=== PATIENT | female | born 1945 | race Caucasian/White ===

== ENCOUNTER → 2017-08-01 | Outpatient (CLI) | payer OTHER | END | disposition home or self-care (01) | LOC: RAH 11:50 | PROVIDERS: ATTEND Internal Medicine | DX: Z00.00 Encounter for general adult medical examination without abnormal findings (principal); R06.02 Shortness of breath | CPT/HCPCS: 71020 ==

== ENCOUNTER → 2017-08-20 | Outpatient (CLI) | payer OTHER | END | disposition home or self-care (01) | LOC: SHCH 13:39 | PROVIDERS: ATTEND Internal Medicine Cardiovascular Disease | DX: I65.23 Occlusion and stenosis of bilateral carotid arteries (principal); I10 Essential (primary) hypertension; I25.10 Atherosclerotic heart disease of native coronary artery without angina pectoris | CPT/HCPCS: 93880 ==

== ENCOUNTER → 2017-08-25 | Outpatient (CLI) | payer OTHER | END | disposition home or self-care (01) | LOC: RAH 13:16 | PROVIDERS: ATTEND Internal Medicine | DX: Z12.31 Encounter for screening mammogram for malignant neoplasm of breast (principal) | CPT/HCPCS: 77067 ==

== ENCOUNTER → 2018-06-16 | Outpatient (CLI) | payer OTHER | END | disposition home or self-care (01) | LOC: RAH 11:03 | PROVIDERS: ATTEND Internal Medicine | DX: I12.9 Hypertensive chronic kidney disease with stage 1 through stage 4 chronic kidney disease, or unspecified chronic kidney disease (principal); N18.3 Chronic kidney disease, stage 3 (moderate); N32.89 Other specified disorders of bladder | CPT/HCPCS: 76770 ==

== ENCOUNTER → 2018-11-09 | Outpatient (CLI) | payer OTHER | END | disposition home or self-care (01) | LOC: RAH 09:40 | PROVIDERS: ATTEND Internal Medicine | DX: M25.511 Pain in right shoulder (principal); M79.601 Pain in right arm | CPT/HCPCS: 73030 ==

== ENCOUNTER → 2019-01-04 | Outpatient (CLI) | payer OTHER | END | disposition home or self-care (01) | LOC: SHCH 09:46 | PROVIDERS: ATTEND Internal Medicine Cardiovascular Disease | DX: I65.23 Occlusion and stenosis of bilateral carotid arteries (principal); I25.10 Atherosclerotic heart disease of native coronary artery without angina pectoris | CPT/HCPCS: 93880 ==

== ENCOUNTER → 2019-06-30 | Outpatient (CLI) | payer OTHER | END | disposition home or self-care (01) | LOC: RAH 13:36 | PROVIDERS: ATTEND Internal Medicine | DX: Z12.31 Encounter for screening mammogram for malignant neoplasm of breast (principal) | CPT/HCPCS: 77067 ==

== ENCOUNTER → 2019-07-15 | Outpatient (CLI) | payer OTHER | END | disposition home or self-care (01) | LOC: RAH 09:33 | PROVIDERS: ATTEND Internal Medicine | DX: N63.12 Unspecified lump in the right breast, upper inner quadrant (principal) | CPT/HCPCS: 76641 ==

== ENCOUNTER 2019-11-15 09:51 | Inpatient (IN) | payer OTHER ==
[~2019-11-15] VITALS: Ht 160 cm; Wt 95.0 kg
[2019-11-15 10:20] LABS: BASOPHILS % (AUTO) 0.4 % (0.0-5.0); EOSINOPHILS % (AUTO) 0.5 % (0.0-8.0); HEMATOCRIT 47.3 % (36-48); LYMPHOCYTES % (AUTO) 6.3 % (21.0-51.0); MEAN CORPUSCULAR HEMOGLOBIN 30.6 pg (27.0-33.0); MEAN CORPUSCULAR HGB CONC 33.4 g/dL (32.0-36.0); MEAN CORPUSCULAR VOLUME 91.7 fL (79-99); MONOCYTES % (AUTO) 4.1 % (3.0-13.0); NEUTROPHILS % (AUTO) 88.1 % (40.0-77.0); PLATELET COUNT (AUTO) 285 K/uL (130-400); RED BLOOD CELL COUNT(AUTO) 5.16 MIL/uL (4.00-5.50); RED CELL DISTRIBUTION WIDTH 12.9 % (11.0-15.5); WHITE BLOOD COUNT (AUTO) 19.3 K/uL (4.8-10.8)
[2019-11-15 10:24] LABS: APPEARANCE,URINE Clear (CLEAR); BILIRUBIN,URINE Negative (NEGATIVE); COLOR,URINE Yellow (YELLOW); GLUCOSE, URINE (UA) Negative (NEGATIVE); KETONES,URINE Negative (NEGATIVE); LEUKOCYTE ESTERASE ,URINE Small (NEGATIVE); NITRATE,URINE Negative (NEGATIVE); OCCULT BLOOD,URINE Trace (NEGATIVE); PROTEIN,URINE Negative (NEGATIVE); UROBILINOGEN,URINE 0.2 mg/dL (0.2-1.0)
[2019-11-15 10:30] LABS: BACTERIA,URINE Moderate /HPF (None Seen); CREATININE 1.2 mg/dL (0.5-1.5); POTASSIUM 3.8 mmol/L (3.5-5.1); RBC,URINE 0-1 /HPF (0-1); SQUAMOUS EPITHELIAL CELL,UR Few /HPF (0-2)
[2019-11-15 10:36] LABS: ALBUMIN 4.3 g/dL (3.5-5.0); BILIRUBIN,TOTAL 0.7 mg/dL (0.2-1.0); TOTAL PROTEIN, SERUM 8.1 g/dL (6.0-8.3)
[2019-11-15] MEDS ORDERED: LEVOFLOXACIN 500 MG/D5W 100 ML 100 ML ONE (13:15)
[2019-11-15] MEDS ORDERED: METRONIDAZOLE 500 MG TABLET ONE (13:15)
[2019-11-15] MEDS ORDERED: MORPHINE SULFATE 2 MG/ML 1ML SYG IV PRN (19:45)
[2019-11-15] MEDS ORDERED: ONDANSETRON HCL 4 MG/2 ML VIAL IV PRN (19:45)
[2019-11-15] MEDS ORDERED: ACETAMINOPHEN 325 MG TAB PO PRN ×2 (19:45)
[2019-11-15] MEDS ORDERED: MORPHINE SULFATE 2 MG/ML 1ML SYG ONE (20:26)
[2019-11-15] MEDS ORDERED: ONDANSETRON HCL 4 MG/2 ML VIAL ONE (20:26)
[2019-11-15 20:40] VITALS: BP 131/79
[2019-11-15] MEDS: METRONIDAZOLE 500 MG TABLET PO SCH (20:53)
[2019-11-15] MEDS: FAMOTIDINE/PF 20 MG/2 ML VIAL IV SCH (20:58)
[2019-11-15] MEDS: SODIUM CHLORIDE 0.9% 1000ML 1,000 ML IV SCH (20:58)
[2019-11-15] MEDS ORDERED: FAMOTIDINE/PF 20 MG/2 ML VIAL IV SCH (21:00)
[2019-11-15] MEDS ORDERED: ASPI-556 PO (21:22)
[2019-11-15] MEDS ORDERED: LISI-613 PO (21:22)
[2019-11-15] MEDS ORDERED: ATOR40TA69 PO (21:22)
[2019-11-15] MEDS ORDERED: FOLI1TAB85 PO (21:22)
[2019-11-15] MEDS ORDERED: ESCI20TA36 PO (21:22)
[2019-11-15] MEDS ORDERED: PREG75CA75 PO (21:22)
[2019-11-15] MEDS ORDERED: DEXT20TA6 PO (21:22)
[2019-11-15] MEDS ORDERED: BUSP10TA3 PO (21:22)
[2019-11-15] MEDS ORDERED: FLUT16H NASAL (21:22)
[2019-11-15 23:49] VITALS: BP 105/58
[2019-11-16 04:00] VITALS: BP 90/46
[2019-11-16 05:03] LABS: BASOPHILS % (AUTO) 0.5 % (0.0-5.0); EOSINOPHILS % (AUTO) 2.2 % (0.0-8.0); HEMATOCRIT 40.1 % (36-48); LYMPHOCYTES % (AUTO) 14.4 % (21.0-51.0); MEAN CORPUSCULAR HEMOGLOBIN 30.6 pg (27.0-33.0); MEAN CORPUSCULAR HGB CONC 33.2 g/dL (32.0-36.0); MEAN CORPUSCULAR VOLUME 92.2 fL (79-99); MONOCYTES % (AUTO) 7.6 % (3.0-13.0); NEUTROPHILS % (AUTO) 75.1 % (40.0-77.0); PLATELET COUNT (AUTO) 223 K/uL (130-400); RED BLOOD CELL COUNT(AUTO) 4.35 MIL/uL (4.00-5.50)
[2019-11-16 05:29] LABS: ALBUMIN 3.2 g/dL (3.5-5.0); BILIRUBIN,TOTAL 0.9 mg/dL (0.2-1.0); CREATININE 1.6 mg/dL (0.5-1.5); POTASSIUM 4.3 mmol/L (3.5-5.1); TOTAL PROTEIN, SERUM 6.3 g/dL (6.0-8.3)
[2019-11-16 05:47] LABS: % IRON SATURATION 23.4 % (22-44)
[2019-11-16 08:11] VITALS: BP 110/58
[2019-11-16] MEDS: SODIUM CHLORIDE 0.9% 1000ML 1,000 ML IV SCH ×2 (09:38→20:15)
[2019-11-16] MEDS: METRONIDAZOLE 500 MG TABLET PO SCH ×3 (09:46→20:15)
[2019-11-16] MEDS: FAMOTIDINE/PF 20 MG/2 ML VIAL IV SCH (09:47)
--- NOTE | 2019-11-16 11:22 | NUR ---
INITIAL SW spoke with patient's spouse, Warren Helton, [phone]. Patient lives with spouse. No home services. DME: CPAP, BPM, glucometer (no insulin), nebulizer, shower chair. Patient is independent with ADL's and drives. PCP is Dr. Mulugeta Brito. Pharmacy is [facility] located on [address] in [place]. DCP is home. Addendum: 11/16/19 at 1124 by TIFFANIE FLORENTINO SS Amended: Links added.
[2019-11-16 11:25] VITALS: BP 99/57
[2019-11-16] MEDS ORDERED: ASPIRIN 81 MG EC TAB PO PRN (14:15)
[2019-11-16] MEDS: LEVOFLOXACIN 250 MG/D5W 50ML 50 ML IVPB SCH (14:51)
[2019-11-16] MEDS: FLUTICASONE PROPIONATE 50MCG/SPRAY 16 GM BOTTLE EN SCH (14:51)
[2019-11-16 15:23] VITALS: BP 92/71
[2019-11-16 19:00] VITALS: BP 104/62
[2019-11-16] MEDS: ATORVASTATIN CALCIUM 40 MG TABLET PO SCH (20:14)
[2019-11-16] MEDS: BUSPIRONE HCL 5 MG TABLET PO SCH (20:14)
[2019-11-16] MEDS: ESCITALOPRAM OXALATE 30 MG PO SCH (20:14)
[2019-11-16 23:00] VITALS: BP 109/57
[2019-11-17 03:00] VITALS: BP 123/52
[2019-11-17 04:53] LABS: BASOPHILS % (AUTO) 0.8 % (0.0-5.0); EOSINOPHILS % (AUTO) 2.9 % (0.0-8.0); HEMATOCRIT 38.1 % (36-48); LYMPHOCYTES % (AUTO) 12.4 % (21.0-51.0); MEAN CORPUSCULAR HGB CONC 33.1 g/dL (32.0-36.0); MEAN CORPUSCULAR VOLUME 93.8 fL (79-99); MONOCYTES % (AUTO) 6.3 % (3.0-13.0); NEUTROPHILS % (AUTO) 77.3 % (40.0-77.0); PLATELET COUNT (AUTO) 214 K/uL (130-400); RED BLOOD CELL COUNT(AUTO) 4.06 MIL/uL (4.00-5.50); RED CELL DISTRIBUTION WIDTH 13.4 % (11.0-15.5); WHITE BLOOD COUNT (AUTO) 10.6 K/uL (4.8-10.8)
[2019-11-17 05:08] LABS: CREATININE 1.4 mg/dL (0.5-1.5); CRP QUANTITATIVE 40.9 mg/L (0.00-9.0); MAGNESIUM 1.8 mg/dL (1.80-2.40); PHOSPHORUS 3.3 mg/dL (2.5-4.9)
[2019-11-17 05:09] LABS: % IRON SATURATION 21.8 % (22-44)
[2019-11-17 06:11] LABS: ERYTHROCYTE SEDIMENTATION RATE 13 MM/HR (0-30)
[2019-11-17 08:00] VITALS: BP 142/66
[2019-11-17] MEDS ORDERED: PREGABALIN 75 MG CAPSULE PO SCH (09:00)
[2019-11-17] MEDS: Vitamin B Complex/Vit C/Folic Acid PO SCH (10:09)
[2019-11-17] MEDS: FLUTICASONE PROPIONATE 50MCG/SPRAY 16 GM BOTTLE EN SCH (10:09)
[2019-11-17] MEDS: BUSPIRONE HCL 5 MG TABLET PO SCH ×2 (10:11→20:33)
[2019-11-17] MEDS: METRONIDAZOLE 500 MG TABLET PO SCH ×3 (10:11→20:33)
[2019-11-17] MEDS: LISINOPRIL 20 MG TABLET PO SCH (10:11)
[2019-11-17] MEDS: FAMOTIDINE/PF 20 MG/2 ML VIAL IV SCH (10:12)
[2019-11-17 12:03] VITALS: BP 132/91
[2019-11-17] MEDS: LEVOFLOXACIN 250 MG/D5W 50ML 50 ML IVPB SCH (15:22)
[2019-11-17 17:11] VITALS: BP 137/108
[2019-11-17 19:00] VITALS: BP 130/66
[2019-11-17] MEDS: ATORVASTATIN CALCIUM 40 MG TABLET PO SCH (20:34)
[2019-11-17] MEDS: ESCITALOPRAM OXALATE 30 MG PO SCH (20:35)
[2019-11-17] MEDS: SODIUM CHLORIDE 0.9% 1000ML 1,000 ML IV SCH ×2 (22:00→23:04)
[2019-11-18] VITALS: BP 120/57
[2019-11-18 04:00] VITALS: BP 108/58
[2019-11-18 04:31] LABS: BASOPHILS % (AUTO) 0.5 % (0.0-5.0); EOSINOPHILS % (AUTO) 2.6 % (0.0-8.0); HEMATOCRIT 37.4 % (36-48); LYMPHOCYTES % (AUTO) 12.7 % (21.0-51.0); MEAN CORPUSCULAR HEMOGLOBIN 31.6 pg (27.0-33.0); MEAN CORPUSCULAR HGB CONC 33.4 g/dL (32.0-36.0); MEAN CORPUSCULAR VOLUME 94.4 fL (79-99); MONOCYTES % (AUTO) 9.7 % (3.0-13.0); NEUTROPHILS % (AUTO) 74.1 % (40.0-77.0); PLATELET COUNT (AUTO) 241 K/uL (130-400); RED BLOOD CELL COUNT(AUTO) 3.96 MIL/uL (4.00-5.50); RED CELL DISTRIBUTION WIDTH 13.3 % (11.0-15.5); WHITE BLOOD COUNT (AUTO) 11.2 K/uL (4.8-10.8)
[2019-11-18 04:44] LABS: CREATININE 1.2 mg/dL (0.5-1.5); POTASSIUM 3.9 mmol/L (3.5-5.1)
[2019-11-18 07:50] VITALS: BP 126/54
[2019-11-18] MEDS: FLUTICASONE PROPIONATE 50MCG/SPRAY 16 GM BOTTLE EN SCH (09:00)
[2019-11-18] MEDS: Vitamin B Complex/Vit C/Folic Acid PO SCH (10:53)
[2019-11-18] MEDS: LISINOPRIL 20 MG TABLET PO SCH (10:55)
[2019-11-18] MEDS: BUSPIRONE HCL 5 MG TABLET PO SCH (10:55)
[2019-11-18] MEDS: METRONIDAZOLE 500 MG TABLET PO SCH ×2 (10:56→13:50)
[2019-11-18] MEDS: FAMOTIDINE/PF 20 MG/2 ML VIAL IV SCH (10:57)
[2019-11-18 11:24] VITALS: BP 136/81
[2019-11-18] MEDS: LEVOFLOXACIN 250 MG/D5W 50ML 50 ML IVPB SCH (13:49)
[2019-11-18] MEDS: SODIUM CHLORIDE 0.9% 1000ML 1,000 ML IV SCH (13:50)
[2019-11-18 16:00] VITALS: BP 142/66
== END 2019-11-18 18:30 | disposition home or self-care (01) | DRG 386 ==
LOC: EDH 09:51 → EDHIP 19:41 → 3CH 20:22
PROVIDERS: ADMIT Hospitalist; ATTEND Hospitalist
PROC: 5A09357 Assistance with Respiratory Ventilation, Less than 24 Consecutive Hours, Continuous Positive Airway Pressure (ICD-10-PCS; principal; 2019-11-16)
PROC: 5A09357 Assistance with Respiratory Ventilation, Less than 24 Consecutive Hours, Continuous Positive Airway Pressure (ICD-10-PCS; 2019-11-17)
PROC: 5A09357 Assistance with Respiratory Ventilation, Less than 24 Consecutive Hours, Continuous Positive Airway Pressure (ICD-10-PCS; 2019-11-18)
DX: K51.518 Left sided colitis with other complication (principal); N17.9 Acute kidney failure, unspecified; N39.0 Urinary tract infection, site not specified; D62 Acute posthemorrhagic anemia; D72.829 Elevated white blood cell count, unspecified; I10 Essential (primary) hypertension; E78.5 Hyperlipidemia, unspecified; B96.89 Other specified bacterial agents as the cause of diseases classified elsewhere; K57.30 Diverticulosis of large intestine without perforation or abscess without bleeding; Z87.891 Personal history of nicotine dependence; Z88.5 Allergy status to narcotic agent; Z88.7 Allergy status to serum and vaccine; Z91.018 Allergy to other foods
CPT/HCPCS: 36415; 74176; 80048; 80053; 81001; 82270; 83540; 83550; 83605; 83735; 84100; 84145; 85025; 85651; 86140; 87040; 87077; 87088; 87186; G0378; J1956; J2405; J3490; J7030

== ENCOUNTER → 2020-01-05 | Outpatient (CLI) | payer OTHER ==
[~2020-01-05] MED LIST: ASPI-556 PO; ATOR40TA69 PO; BUSP10TA3 PO; DEXT20TA6 PO; ESCI20TA36 PO; FLUT16H NASAL; FOLI1TAB85 PO; LISI-613 PO; PREG75CA75 PO
== END | disposition home or self-care (01) ==
LOC: RAH 12:55
PROVIDERS: ATTEND Internal Medicine
DX: M25.511 Pain in right shoulder (principal); M54.2 Cervicalgia
CPT/HCPCS: 72040; 73030

== ENCOUNTER → 2020-08-17 | Outpatient (CLI) | payer OTHER ==
[~2020-08-17] MED LIST changes: +IOHEXOL-350 75 ML VIAL IV ONE
== END | disposition home or self-care (01) ==
LOC: RAH 08:06
PROVIDERS: ATTEND Internal Medicine Cardiovascular Disease
DX: I65.23 Occlusion and stenosis of bilateral carotid arteries (principal)
CPT/HCPCS: 70498; Q9967

== ENCOUNTER → 2020-09-01 | Outpatient (CLI) | payer OTHER ==
[~2020-09-01] MED LIST changes: -ESCI20TA36 PO; +ESCI20TA54 PO; -IOHEXOL-350 75 ML VIAL IV ONE
== END | disposition home or self-care (01) ==
LOC: RAH 09:43
PROVIDERS: ATTEND Internal Medicine
DX: Z12.31 Encounter for screening mammogram for malignant neoplasm of breast (principal)
CPT/HCPCS: 77067

== ENCOUNTER → 2021-03-12 | Outpatient (CLI) | payer OTHER ==
[~2021-03-12] MED LIST changes: +ESCI20TA38 PO; -ESCI20TA54 PO; -LISI-613 PO; +LISI20TA24 PO
== END | disposition home or self-care (01) ==
LOC: SHCH 10:00
PROVIDERS: ATTEND Internal Medicine Cardiovascular Disease
DX: I65.23 Occlusion and stenosis of bilateral carotid arteries (principal)
CPT/HCPCS: 93880

== ENCOUNTER → 2021-03-20 | Outpatient (CLI) | payer OTHER ==
[2021-03-20 17:12] LABS: CREATININE 1.4 mg/dL (0.5-1.5)
== END | disposition home or self-care (01) ==
LOC: LAB 15:19
PROVIDERS: ATTEND Internal Medicine Cardiovascular Disease
DX: I65.22 Occlusion and stenosis of left carotid artery (principal)
CPT/HCPCS: 36415; 82565; 84520

== ENCOUNTER → 2021-03-21 | Outpatient (CLI) | payer OTHER ==
[~2021-03-21] MED LIST changes: +IOHEXOL 350 MG/ML 100ML INFUS..BTL IV ONE
== END | disposition home or self-care (01) ==
LOC: RAH 09:22
PROVIDERS: ATTEND Internal Medicine Cardiovascular Disease
DX: I65.23 Occlusion and stenosis of bilateral carotid arteries (principal)
CPT/HCPCS: 70498; Q9967

== ENCOUNTER 2021-11-15 07:26 | Day surgery (SDC) | payer OTHER ==
[2021-11-09 12:58] LABS: APPEARANCE,URINE Clear (CLEAR); BILIRUBIN,URINE Negative (NEGATIVE); COLOR,URINE Yellow (YELLOW); GLUCOSE, URINE (UA) Negative (NEGATIVE); KETONES,URINE Negative (NEGATIVE); LEUKOCYTE ESTERASE ,URINE Small (NEGATIVE); NITRATE,URINE Negative (NEGATIVE); OCCULT BLOOD,URINE Small (NEGATIVE); PH,URINE 6.5 (5.0-8.0); PROTEIN,URINE Negative (NEGATIVE); UROBILINOGEN,URINE 0.2 mg/dL (0.2-1.0)
[2021-11-09 13:01] LABS: BASOPHILS % (AUTO) 0.8 % (0.0-5.0); EOSINOPHILS % (AUTO) 3.9 % (0.0-8.0); HEMATOCRIT 42.9 % (36-48); LYMPHOCYTES % (AUTO) 13.6 % (21.0-51.0); MEAN CORPUSCULAR HEMOGLOBIN 31.5 pg (27.0-33.0); MEAN CORPUSCULAR HGB CONC 33.6 g/dL (32.0-36.0); MEAN CORPUSCULAR VOLUME 93.9 fL (79-99); MONOCYTES % (AUTO) 5.5 % (3.0-13.0); NEUTROPHILS % (AUTO) 75.9 % (40.0-77.0); PLATELET COUNT (AUTO) 279 K/uL (130-400); RED BLOOD CELL COUNT(AUTO) 4.57 MIL/uL (4.00-5.50); RED CELL DISTRIBUTION WIDTH 13.2 % (11.0-15.5); WHITE BLOOD COUNT (AUTO) 9.5 K/uL (4.8-10.8)
[2021-11-09 13:13] LABS: INR 1.02 (0.85-1.15); PROTHROMBIN TIME 11.1 SEC (9.6-11.6)
[2021-11-09 13:15] LABS: CREATININE 1.3 mg/dL (0.5-1.5); PARTIAL THROMBOPLASTIN TIME 25.5 SEC (26.3-35.5); POTASSIUM 4.6 mmol/L (3.5-5.1)
[2021-11-09 13:38] LABS: BACTERIA,URINE Moderate /HPF (None Seen)
[~2021-11-15] VITALS: Ht 157.5 cm; Wt 98.2 kg
[2021-11-15] VITALS (18 sets, daily range): BP systolic 108–138; BP diastolic 41–82
[~2021-11-15 07:26] MED LIST changes: +ASPI-1443 PO; -ASPI-556 PO; -ATOR40TA69 PO; -BUSP10TA3 PO; +CETI10TA57 PO; +CLOP75TA14 PO; -DEXT20TA6 PO; +ESCI20TA PO; -ESCI20TA38 PO; -IOHEXOL 350 MG/ML 100ML INFUS..BTL IV ONE; +MONT10TA21 PO; +PRAV40TA3 PO; +PREG75 PO; -PREG75CA75 PO; +VITAMIN B12 IM; +VITAMIN D PO
[2021-11-15] MEDS: GENTAMICIN 80 MG/NS 100 ML PB 100 ML IV SCH ×2 (08:00→08:52)
[2021-11-15] MEDS ORDERED: LACTATED RINGERS 1000ML 1,000 ML IV ONE (08:13)
[2021-11-15] MEDS: CEFAZOLIN SODIUM 1 GM VIAL IVP ONE ×2 (08:49→09:50)
[2021-11-15] MEDS ORDERED: ESTROGENS,CONJUGATED 0.625 MG/GM 42.5 GM VAG CRM VG ONE (09:17)
[2021-11-15] MEDS ORDERED: LIDOCAINE 1%-EPI 1:100,000 20 ML VIAL IJ ONE (09:18)
[2021-11-15] MEDS ORDERED: CEFAZOLIN SODIUM 1 GM VIAL ONE (09:18)
[2021-11-15] MEDS ORDERED: MIDAZOLAM HCL 1 MG/ML 2ML VIAL ONE (09:47)
[2021-11-15] MEDS ORDERED: NEOSTIGMINE 5MG/5ML SYR IV ONE (09:47)
[2021-11-15] MEDS ORDERED: LIDOCAINE PF 100MG/5ML (2%) SYRINGE 5ML ONE (09:47)
[2021-11-15] MEDS ORDERED: PROPOFOL 10 MG/ML 20ML VIAL IV ONE (09:47)
[2021-11-15] MEDS ORDERED: ONDANSETRON 4MG INJ ONE (09:47)
[2021-11-15] MEDS ORDERED: SUCCINYLCHOLINE CHLORIDE 20 MG/ML 10 ML VIAL ONE (09:47)
[2021-11-15] MEDS ORDERED: GLYCOPYRROLATE 1 MG/5 ML SYRINGE ONE ×2 (09:47→11:56)
[2021-11-15] MEDS ORDERED: DEXAMETHASONE SOD PHOSPHATE 10MG/ML 1ML VIAL ONE (09:47)
[2021-11-15] MEDS ORDERED: FENTANYL CITRATE PF 50 MCG/1 ML 2ML VIAL ONE (09:48)
[2021-11-15] MEDS ORDERED: ROCURONIUM 10MG/1ML SYR 10 MG/ML ML ONE ×2 (09:48→10:18)
[2021-11-15] MEDS ORDERED: PHENYLEPHRINE HCL 10 MG/ML 1ML VIAL IV ONE (09:52)
[2021-11-15] MEDS ORDERED: MEPERIDINE-PF 25 MG/ML SYG ONE ×2 (11:14→11:48)
[2021-11-15] MEDS ORDERED: KETOROLAC 15MG/ML VIAL (15MG/ML) ONE (11:39)
== END 2021-11-15 13:13 | disposition home or self-care (01) ==
LOC: DAH 07:26
PROVIDERS: ATTEND Urology
DX: N39.46 Mixed incontinence (principal); I10 Essential (primary) hypertension; E78.5 Hyperlipidemia, unspecified; Z79.899 Other long term (current) drug therapy; Z79.01 Long term (current) use of anticoagulants; Z88.8 Allergy status to other drugs, medicaments and biological substances; Z88.6 Allergy status to analgesic agent; Z98.890 Other specified postprocedural states; Z90.49 Acquired absence of other specified parts of digestive tract; Z79.82 Long term (current) use of aspirin
CPT/HCPCS: 36415; 57288; 71045; 80048; 81001; 85025; 85610; 85730; 87077; 87088; 87186; 87635; 93005; A4215; A4221; A4222; A4223; A4344; A4600; A4649; A4663; C1771; C9803; G0168; J0330; J0690 ×2; J1100; J1580 ×2; J1885; J2001; J2175 ×2; J2250; J2370; J2405; J2704; J2710; J3010; J3490 ×3; J7030; J7120

== ENCOUNTER → 2021-12-07 | Outpatient (CLI) | payer OTHER | END | disposition home or self-care (01) | LOC: RAH 11:58 | PROVIDERS: ATTEND Internal Medicine | DX: R05.3 Chronic cough (principal) | CPT/HCPCS: 71046 ==

== ENCOUNTER → 2022-01-07 | Outpatient (CLI) | payer OTHER | END | disposition home or self-care (01) | LOC: RAH 15:27 | PROVIDERS: ATTEND Internal Medicine | DX: M47.815 Spondylosis without myelopathy or radiculopathy, thoracolumbar region (principal); R05.3 Chronic cough; R04.2 Hemoptysis; Z87.891 Personal history of nicotine dependence; J98.11 Atelectasis; I25.84 Coronary atherosclerosis due to calcified coronary lesion | CPT/HCPCS: 71250 ==

== ENCOUNTER → 2022-01-15 | Outpatient (CLI) | payer OTHER | END | disposition home or self-care (01) | LOC: RAH 08:10 | PROVIDERS: ATTEND Internal Medicine | DX: R41.3 Other amnesia (principal) | CPT/HCPCS: 70551 ==

== ENCOUNTER → 2022-03-29 | Outpatient (CLI) | payer OTHER | END | disposition home or self-care (01) | LOC: RAH 12:52 | PROVIDERS: ATTEND Internal Medicine | DX: T14.8XXA Other injury of unspecified body region, initial encounter (principal); N64.4 Mastodynia; N63.0 Unspecified lump in unspecified breast; X58.XXXA Exposure to other specified factors, initial encounter; Y93.89 Activity, other specified; Y92.89 Other specified places as the place of occurrence of the external cause; Y99.8 Other external cause status | CPT/HCPCS: 76641; 77066 ==

== ENCOUNTER → 2022-07-09 | Outpatient (CLI) | payer OTHER ==
[~2022-07-09] MED LIST changes: +CLOP-31 PO; -CLOP75TA14 PO
== END | disposition home or self-care (01) ==
LOC: SHCH 09:11
PROVIDERS: ATTEND Internal Medicine Cardiovascular Disease
DX: I65.23 Occlusion and stenosis of bilateral carotid arteries (principal); F50.89 Other specified eating disorder
CPT/HCPCS: 93880

== ENCOUNTER → 2022-12-02 | Outpatient (CLI) | payer OTHER ==
[~2022-12-02] MED LIST changes: +MONT-46 PO; -MONT10TA21 PO
== END | disposition home or self-care (01) ==
LOC: RAH 12:58
PROVIDERS: ATTEND Internal Medicine Cardiovascular Disease
DX: Z13.6 Encounter for screening for cardiovascular disorders (principal); I51.5 Myocardial degeneration
CPT/HCPCS: 75571

== ENCOUNTER → 2023-02-03 | Outpatient (CLI) | payer OTHER ==
[~2023-02-03] MED LIST changes: +REGADENOSON 0.4 MG/5 ML PF SYG IVP ONE
== END | disposition home or self-care (01) ==
LOC: SHCH 01-31 08:22
PROVIDERS: ATTEND Internal Medicine Cardiovascular Disease
DX: R93.1 Abnormal findings on diagnostic imaging of heart and coronary circulation (principal); Z79.02 Long term (current) use of antithrombotics/antiplatelets; Z79.82 Long term (current) use of aspirin; Z79.899 Other long term (current) drug therapy
CPT/HCPCS: 78452; 96374; 93017; J2785; A9500 ×2

== ENCOUNTER 2023-04-08 08:27 | Day surgery (SDC) | payer OTHER ==
[2023-04-03 11:54] LABS: BASOPHILS # (AUTO) 0.09 K/uL (0.00-0.20); EOSINOPHILS % (AUTO) 3.4 % (0.0-8.0); HEMATOCRIT 42.2 % (36-48); IMMATURE GRANULOCYTE ABSOLUTE 0.04 K/uL (0-1); LYMPHOCYTES # (AUTO) 1.2 K/uL (1.0-4.8); LYMPHOCYTES % (AUTO) 13.4 % (21.0-51.0); MEAN CORPUSCULAR HEMOGLOBIN 31.1 pg (27.0-33.0); MEAN CORPUSCULAR HGB CONC 32.7 g/dL (32.0-36.0); MONOCYTES # (AUTO) 0.6 K/uL (0.1-1.0); MONOCYTES % (AUTO) 6.5 % (3.0-13.0); NEUTROPHILS # (AUTO) 6.6 K/uL (1.8-7.7); NEUTROPHILS % (AUTO) 75.2 % (40.0-77.0); PLATELET COUNT (AUTO) 266 K/uL (130-400); RED BLOOD CELL COUNT(AUTO) 4.44 MIL/uL (4.00-5.50); RED CELL DISTRIBUTION WIDTH 13.1 % (11.0-15.5); WHITE BLOOD COUNT (AUTO) 8.7 K/uL (4.8-10.8)
[2023-04-03 11:57] VITALS: BP 151/77; PULSE 56; RESP 16
[2023-04-03 12:02] LABS: CREATININE 1.1 mg/dL (0.5-1.5); POTASSIUM 4.5 mmol/L (3.5-5.1)
[2023-04-03 12:22] LABS: INR < 0.93 (0.85-1.15); PROTHROMBIN TIME 10.6 SEC (9.6-11.6)
[2023-04-03 12:23] LABS: PARTIAL THROMBOPLASTIN TIME 26.7 SEC (26.3-35.5)
[2023-04-03 12:52] LABS: APPEARANCE,URINE CLEAR (CLEAR); BILIRUBIN,URINE NEGATIVE (NEGATIVE); COLOR,URINE YELLOW (YELLOW); GLUCOSE, URINE (UA) NEGATIVE (NEGATIVE); KETONES,URINE NEGATIVE (NEGATIVE); LEUKOCYTE ESTERASE ,URINE 500 Leu/uL (NEGATIVE); NITRATE,URINE NEGATIVE (NEGATIVE); OCCULT BLOOD,URINE NEGATIVE (NEGATIVE); PH,URINE 5.5 (5.0-8.0); PROTEIN,URINE 20 mg/dL (NEGATIVE); UROBILINOGEN,URINE 0.2 mg/dL (0.2-1.0)
[2023-04-03 12:54] LABS: ADD UA MICROSCOPIC YES
[2023-04-03 13:00] LABS: BACTERIA,URINE FEW /HPF (None Seen); MUCUS,URINE RARE LPF (None Seen); SQUAMOUS EPITHELIAL CELL,UR MOD /HPF (0-2); TRANSITIONAL EPI CELLS,URINE FEW /HPF (None Seen); WBC,URINE 51-100 /HPF (0-1)
[~2023-04-08] VITALS: Ht 157.5 cm; Wt 94.6 kg
[2023-04-08] VITALS (9 sets, daily range): BP systolic 104–150; BP diastolic 48–68; PULSE 54–65; RESP 13–17
[~2023-04-08 08:27] MED LIST changes: +AMPH20TA3 PO; +ATOR40TA69 PO; -LISI20TA24 PO; +LOSA50TA64 PO; -PRAV40TA3 PO; +PREG100C55 PO; -PREG75 PO; -REGADENOSON 0.4 MG/5 ML PF SYG IVP ONE; +SOLI5TAB6 PO; -VITAMIN D PO; +VITAMIN D3 PO
[2023-04-08] MEDS ORDERED: 0.9%NACL 1000ML 1,000 ML IV ONE (08:49)
[2023-04-08] MEDS ORDERED: LIDOCAINE HCL 400MG/20ML VIAL ONE (12:50)
[2023-04-08] MEDS ORDERED: SODIUM BICARB 50MEQ 50ML VIAL 50 ML ONE (12:50)
[2023-04-08] MEDS ORDERED: NICARDIPINE 25MG INJ IV ONE (12:51)
[2023-04-08] MEDS ORDERED: IOHEXOL-350 50ML VIAL IV ONE (12:51)
[2023-04-08] MEDS ORDERED: NITROGLYCERIN 50MG VIAL ONE (12:51)
[2023-04-08] MEDS ORDERED: MIDAZOLAM HCL 1 MG/ML 2ML VIAL ONE ×2 (12:51→13:26)
[2023-04-08] MEDS ORDERED: IOHEXOL 350 MG/ML 100ML INFUS..BTL IV ONE (12:51)
[2023-04-08] MEDS ORDERED: MEPERIDINE-PF 25 MG/ML SYG ONE ×2 (12:51→13:25)
[2023-04-08] MEDS ORDERED: HEPARIN 10,000 UNIT/10ML (1,000 UNIT/ML) VIAL ONE (12:51)
[2023-04-08] MEDS ORDERED: 0.9%NACL 1000ML 1,000 ML IV SCH (14:00)
== END 2023-04-08 17:05 | disposition home or self-care (01) ==
LOC: DAH 08:27
PROVIDERS: ATTEND Internal Medicine Cardiovascular Disease
DX: I25.119 Atherosclerotic heart disease of native coronary artery with unspecified angina pectoris (principal); E78.5 Hyperlipidemia, unspecified; I12.9 Hypertensive chronic kidney disease with stage 1 through stage 4 chronic kidney disease, or unspecified chronic kidney disease; N18.31 Chronic kidney disease, stage 3a; Z79.899 Other long term (current) drug therapy; Z79.01 Long term (current) use of anticoagulants; Z79.82 Long term (current) use of aspirin; Z86.73 Personal history of transient ischemic attack (TIA), and cerebral infarction without residual deficits; Z82.49 Family history of ischemic heart disease and other diseases of the circulatory system
CPT/HCPCS: 80048; 83880; 85025; 85610; 85730; 87088; 81001; 36415; 71045; 93005; 93458; C1769; A4649; C1894; J3490 ×4; J7030; J1644 ×2; J2250 ×2; J2175 ×2; Q9967; A4215; A4222; A4221; A4663; A4216; A4606; Q9965; A4223 ×3; 96360; 96361; 99156; 99157

== ENCOUNTER → 2023-09-17 | Outpatient (CLI) | payer OTHER ==
[~2023-09-17] MED LIST changes: -PREG100C55 PO; +PREG100C56 PO
== END | disposition home or self-care (01) ==
LOC: SHCH 14:27
PROVIDERS: ATTEND Internal Medicine Cardiovascular Disease
DX: I25.10 Atherosclerotic heart disease of native coronary artery without angina pectoris (principal); I65.23 Occlusion and stenosis of bilateral carotid arteries
CPT/HCPCS: 93880

== ENCOUNTER 2023-12-06 14:20 | Emergency (ER) | payer OTHER ==
[~2023-12-06] VITALS: Ht 157.5 cm; Wt 90.7 kg
[2023-12-06 14:23] VITALS: BP 134/56; PULSE 86; RESP 18
[2023-12-06 15:16] LABS: MEAN CORPUSCULAR HEMOGLOBIN 32.2 pg (27.0-33.0); MEAN CORPUSCULAR HGB CONC 34.1 g/dL (32.0-36.0); MEAN CORPUSCULAR VOLUME 94.3 fL (79-99); PLATELET COUNT (AUTO) 228 K/uL (130-400); RED BLOOD CELL COUNT(AUTO) 4.35 MIL/uL (4.00-5.50); RED CELL DISTRIBUTION WIDTH 12.7 % (11.0-15.5); WHITE BLOOD COUNT (AUTO) 7.8 K/uL (4.8-10.8)
[2023-12-06 15:45] LABS: BASOPHILS % (MANUAL) 2 % (0-2); EOSINOPHILS % (MANUAL) 2 % (1-6); LYMPHOCYTES % (MANUAL) 14 % (22-44); MAN.DIFF COMMENT-IMPRESSION MANUAL DIFFERENTIAL; MONOCYTES % (MANUAL) 5 % (2-9); PLATELET MORPHOLOGY COMMENT ADEQUATE; SEGMENTED NEUTROPHILS % 77 % (40-70); TOTAL CELLS COUNTED 100; WBC MORPHOLOGY NORMAL
[2023-12-06 15:48] LABS: INR 0.94 (0.85-1.15); PROTHROMBIN TIME 11.1 SEC (9.6-11.6)
[2023-12-06 15:50] LABS: PARTIAL THROMBOPLASTIN TIME 26.9 SEC (26.3-35.5)
[2023-12-06 16:39] LABS: POTASSIUM 3.9 mmol/L (3.5-5.1)
[2023-12-06] MEDS: MORPHINE 2 MG SYG IVP ONE (16:41)
[2023-12-06 16:42] LABS: ALBUMIN 3.4 g/dL (3.5-5.0); BILIRUBIN,TOTAL 0.7 mg/dL (0.2-1.0); TOTAL PROTEIN, SERUM 6.4 g/dL (6.0-8.3)
[2023-12-06] MEDS ORDERED: AMOX-426 PO (17:31)
[2023-12-06] MEDS ORDERED: KETO10TA2 PO (17:31)
[2023-12-06] MEDS: MORPHINE 2 MG SYG IM ONE (18:10)
== END 2023-12-06 18:19 | disposition home or self-care (01) ==
LOC: EDH 14:20
DX: G89.29 Other chronic pain (principal); M54.9 Dorsalgia, unspecified; H70.92 Unspecified mastoiditis, left ear; I10 Essential (primary) hypertension; D69.6 Thrombocytopenia, unspecified; E78.00 Pure hypercholesterolemia, unspecified; Z79.82 Long term (current) use of aspirin; Z79.84 Long term (current) use of oral hypoglycemic drugs; Z79.899 Other long term (current) drug therapy; Z90.49 Acquired absence of other specified parts of digestive tract; Z98.890 Other specified postprocedural states; Z88.7 Allergy status to serum and vaccine; Z88.8 Allergy status to other drugs, medicaments and biological substances
CPT/HCPCS: 99285; 70450; 96374; 82550; 84484; 80053; 85025; 85610; 85730; 36415; 74150; 72125; 96372; 93005; 71250; J2270 ×2

== ENCOUNTER → 2024-08-11 | Outpatient (CLI) | payer OTHER ==
[~2024-08-11] MED LIST changes: +AMOX-426 PO; +KETO10TA2 PO
--- NOTE | 2024-08-11 11:24 | HMCIMG ---
THORACIC SPINE 2VWS HISTORY: Radiculopathy COMPARISON: None FINDINGS: 3 images of thoracic spine were obtained. Kyphoplasty changes are seen of the lower thoracolumbar spine. Anterior osteophytes are seen. There is straightening of normal lordotic curvature which may be related to muscle spasm or positioning. No loss other of vertebral height is seen. No acute fracture or dislocation is seen. Degenerative changes are seen. IMPRESSION: 1. No fracture is seen.
--- NOTE | 2024-08-11 11:33 | HMCIMG ---
CLAVICLE RIGHT HISTORY: Status post fall COMPARISON: None TECHNIQUE: 3 images of right clavicle were obtained. FINDINGS: There is no acute displaced fracture or dislocation. Degenerative changes are seen. IMPRESSION: 1. Findings as described above.
--- NOTE | 2024-08-11 11:34 | HMCIMG ---
SHOULDER COMP 2+VWS RT HISTORY: Pain COMPARISON: None TECHNIQUE: 2 images of right shoulder were obtained. FINDINGS: There is no acute displaced fracture or dislocation. Degenerative changes are seen. IMPRESSION: 1. Findings as described above.
--- NOTE | 2024-08-11 14:10 | HMCIMG ---
CERV SPINE 2-3VWS HISTORY: Radiculopathy COMPARISON: None FINDINGS: 4 images of cervical spine were obtained. Degenerative changes with cervical spine spondylosis. Disc space narrowing are seen at C4-5, C5-6 and C6-7 levels There is straightening of normal lordotic curvature which may be related to muscle spasm or positioning. No loss of vertebral height is seen. No fracture or dislocation is seen. Degenerative changes are seen. IMPRESSION: 1. No fracture is seen. DJD.
== END | disposition home or self-care (01) ==
LOC: RAH 09:55
PROVIDERS: ATTEND Internal Medicine
DX: M47.23 Other spondylosis with radiculopathy, cervicothoracic region (principal); M19.011 Primary osteoarthritis, right shoulder; M48.02 Spinal stenosis, cervical region; M25.78 Osteophyte, vertebrae; W19.XXXA Unspecified fall, initial encounter; Y93.89 Activity, other specified; Y92.89 Other specified places as the place of occurrence of the external cause; Y99.8 Other external cause status
CPT/HCPCS: 72040; 72070; 73000; 73030

== ENCOUNTER 2024-08-18 08:35 | Emergency (ER) | payer OTHER ==
[~2024-08-18] VITALS: Ht 160 cm; Wt 97.5 kg
--- NOTE | 2024-08-18 09:11 | ERN ---
General Chief Complaint: Altered Mental Status Stated Complaint: CONFUSION Time Seen by MD: 09:12 History of Present Illness Initial Comments This is a 78-year-old female with a past medical history of high cholesterol, hypertensive heart disease, renal disease, TIA who was brought to the ER by her with the complaints of altered mental status. According to the , the patient woke up today experiencing severe neck and shoulder pain, along with confusion and agitation. It was also noted that she has been confused since yesterday morning and has been experiencing nausea and vomiting. Additionally he mentioned that she had a fall and hit her head 2 weeks ago but her workup at that time was negative. Allergies: Coded Allergies: Tetanus Vaccines and Toxoid (Unverified Allergy, Severe, 04/07/13) avocado (Unverified Allergy, Intermediate, 04/07/13) Home Meds Active Scripts Ketorolac Tromethamine (Ketorolac Tromethamine) 10 Mg Tablet, 10 MG PO BID for 7 Days, #14 TAB Prov:ADAM BAKER 12/06/23 Amoxicillin/Potassium Clav (Augmentin 500-125 Tablet) 500 Mg-125 Mg Tablet, 1 EACH PO BID for back pain for 7 Days, #14 TAB Prov:ADAM BAKER 12/06/23 Reported Medications Losartan Potassium (Losartan Potassium) 50 Mg Tablet, 50 MG PO HS, TAB 04/03/23 Solifenacin Succinate (Solifenacin Succinate) 5 Mg Tablet, 5 MG PO HS, TAB 04/03/23 Dextroamphetamine/Amphetamine (Adderall 20 mg Tablet) 20 Mg Tablet, 20 MG PO DAILY, TAB 04/03/23 Atorvastatin Calcium (LIPITOR) 40 Mg Tablet, 40 MG PO HS, TAB 04/03/23 [Vitamin D3] No Conflict Check, 5000 UNITS PO DAILY 04/03/23 Pregabalin (Pregabalin) 100 Mg Capsule, 100 MG PO HS, CAP 04/03/23 Fluticasone Propionate (Flonase Nasal [place]) 50 Mcg/[place], 2 SPRAY NASAL BID, SPRAY 11/14/21 Montelukast Sodium (Singulair 10Mg) 10 Mg Tab, 10 MG PO HS, TAB 11/14/21 Cetirizine HCl (Cetirizine HCl) 10 Mg Tablet, 10 MG PO DAILY, TAB 11/14/21 Aspirin (Aspirin EC) 81 Mg Tablet.dr, 81 MG PO HS, TAB 11/14/21 Escitalopram Oxalate (Lexapro) 20 Mg Tablet, 20 MG PO HS, TAB 11/14/21 [Vitamin B12] No Conflict Check, IM QMONTH 11/14/21 Clopidogrel Bisulfate (Plavix) 75 Mg Tablet, 75 MG PO HS, TAB 11/14/21 Vit B Cmplx 3/FA/Vit C/Biotin (Ursula-Bre Rx Tablet) 1 Each Tablet, 1 EACH PO DAILY, TAB 11/15/19 Past Medical History Past Medical History: High Cholesterol, Heart Disease, Hypertension, Renal Disese, TIA Past Surgical History: Appendectomy, Other Surgical History Other: WRIST , SPINE ROS Dictation CONSTITUTIONAL: No chills, no fever, no weakness, no diaphoresis, no malaise. HEAD/FACE: No signs of trauma. EENT: No eye pain, no blurred vision, no tearing, no double vision, no ear pain, no ear discharge, no nose pain, no nasal congestion, no throat pain, no throat swelling, no mouth pain. RESPIRATORY: No cough, no orthopnea, no SOB, no stridor, no wheezing. CARDIOVASCULAR: No chest pain, no edema, no palpitations, no syncope. GASTROINTESTINAL/ABDOMINAL: No abdominal pain, no constipation, no diarrhea, no nausea, no vomiting. GENITOURINARY: No abnormal discharge, no dysuria, no frequent urination, no hematuria. No complaints of pain in the genitals. MUSCULOSKELETAL: No back pain, no gout, no joint pain, no joint swelling, no muscle pain, no muscle stiffness, no neck pain. INTEGUMENTARY: No change in color, no change in hair/nails, no dryness, no lesion, no lumps, no rash. NEUROLOGICAL/PSYCH: No anxiety, not depressed, no emotional problem, no headache, no numbness, no pre-existing deficit, no history of seizures, no tremors, no weakness. HEMATOLOGIC/LYMPHATIC: Not anemic, no history of blood clots, no apparent bleeding, no bruising, glands not swollen. All Systems Negative, Except as Noted. Comprehensive review of systems and proper history was not obtained as the patient is confused and disoriented to person, place and time Physical Exam Physical Exam Dictation Physical Exam Dictation VITAL SIGNS: Reviewed. GENERAL APPEARANCE: Alert, disoriented to person place and time, no acute distress, obese. HEAD AND FACE: Non-traumatic. EYES: PERRL, pink conjunctivas, eyelid no trauma, anterior chamber clear. NOSE: No discharge, no bleeding. OROPHARYNX: Mouth normal, teeth no caries, tongue pink. Pharynx clear, no erythema. Tonsils no exudates, no abscesses noted. Mucous membrane moist. NECK: Supple, non-tender, no thyromegaly, no masses, no JVD, no bruits. BREAST: Deferred. CHEST: No tenderness, no crepitus, no paradoxical movement, no retractions. LUNGS: Clear, well-ventilated, symmetric, no rales, no wheezing, no rhonchi, no stridor, good breath sounds bilaterally. HEART: Regular rate, regular rhythm, no murmur, no gallops. VASCULAR: No peripheral edema. ABDOMEN: Soft, positive bowel sounds, nondistended, no guarding, nontender, no rebound RECTAL: Deferred. GENITAL: Deferred. NEUROLOGICAL: Normal speech, gross motor function intact, gross sensory function intact. MUSCULOSKELETAL: Neck nontender, full range of motion, back nontender, full range of motion. EXTREMITIES: Nontender, full range of motion. SKIN: Color pink, dry, no turgor, no rash, no lacerations, no abrasions, no contusions. LYMPHATICS: Deferred. Results Laboratory and Microbiology Lab and Micro Result Laboratory Tests Test 08/18/24 09:25 08/18/24 09:38 08/18/24 11:36 Influenza Type A Antigen Negative For Type A Influenza Type B Antigen Negative For Type B SARS-CoV-2 Antigen (Rapid) PRESUMPTIVE NEGATIVE Group A Streptococcus Rapid negative (NEGATIVE) White Blood Count 11.6 K/uL (4.8-10.8) H Red Blood Count 5.08 MIL/uL (4.00-5.50) Hemoglobin 15.8 g/dL (12.0-16.0) Hematocrit 46.7 % (36-48) Mean Corpuscular Volume 91.9 fL (79-99) Mean Corpuscular Hemoglobin 31.1 pg (27.0-33.0) Mean Corpuscular Hemoglobin Concent 33.8 g/dL (32.0-36.0) Red Cell Distribution Width 13.1 % (11.0-15.5) Platelet Count 265 K/uL (130-400) Mean Platelet Volume 10.0 fL (7.5-10.5) Immature Granulocyte % (Auto) 0.3 % (0-1) Neutrophils (%) (Auto) 83.4 % (40.0-77.0) H Lymphocytes (%) (Auto) 9.5 % (21.0-51.0) L Monocytes (%) (Auto) 5.2 % (3.0-13.0) Eosinophils (%) (Auto) 1.2 % (0.0-8.0) Basophils (%) (Auto) 0.4 % (0.0-5.0) Neutrophils # (Auto) 9.6 K/uL (1.8-7.7) H Lymphocytes # (Auto) 1.1 K/uL (1.0-4.8) Monocytes # (Auto) 0.6 K/uL (0.1-1.0) Eosinophils # (Auto) 0.14 K/uL (0.00-0.70) Basophils # (Auto) 0.05 K/uL (0.00-0.20) Absolute Immature Granulocyte (auto 0.04 K/uL (0-1) Nucleated Red Blood Cells 0.0 % (0.0-0.19) White Cell Morphology Comment See comments Urine Color YELLOW (YELLOW) Urine Appearance CLEAR (CLEAR) Urine pH 5.5 (5.0-8.0) Urine Specific [place] 1.021 (1.001-1.031) Urine Protein 50 mg/dL (NEGATIVE) H Urine Glucose (UA) NEGATIVE mg/dL (NEGATIVE) Urine Ketones 20 mg/dL (NEGATIVE) H Urine Occult Blood MODERATE (NEGATIVE) H Urine Nitrate NEGATIVE (NEGATIVE) Urine Bilirubin NEGATIVE mg/dL (NEGATIVE) Urine Urobilinogen 0.2 mg/dL (0.2-1.0) Urine Leukocyte Esterase NEGATIVE Oswaldo/uL Urine RBC 2-5 /HPF (0-1) H Urine WBC 2-5 /HPF (0-1) H Urine Squamous Epithelial Cells FEW /HPF (0-2) Urine Bacteria RARE /HPF (None Seen) Sodium Level 145 mmol/L (136-145) Potassium Level 4.4 mmol/L (3.5-5.1) Chloride Level 106 mmol/L (101-111) Carbon Dioxide Level 29 mmol/L (21-32) Blood Urea Nitrogen 12 mg/dL (7-18) Creatinine 0.9 mg/dL (0.5-1.0) Glomerular Filtration Rate Calc 66 mL/min (>90) Random Glucose 113 mg/dL (70-105) H Total Calcium 9.0 mg/dL (8.5-10.1) Magnesium Level 1.60 mg/dL (1.80-2.40) L Total Bilirubin 1.3 mg/dL (0.2-1.0) H Direct Bilirubin 0.1 mg/dL (0.0-0.3) Aspartate Amino Transf (AST/SGOT) 48 U/L (10-37) H Alanine Aminotransferase (ALT/SGPT) 36 U/L (12-78) Alkaline Phosphatase 129 U/L (50-136) Ammonia 14 umol/L (11-32) Troponin I High Sensitivity 11 ng/L (4-50) B-Type Natriuretic Peptide 47 pg/mL (0-100) Total Protein 7.9 g/dL (6.0-8.3) Albumin 3.9 g/dL (3.5-5.0) Urine Opiates Screen NEGATIVE (NEGATIVE) Urine Barbiturates Screen NEGATIVE (NEGATIVE) Urine Phencyclidine Screen NEGATIVE (NEGATIVE) Urine Amphetamines Screen NEGATIVE (NEGATIVE) Urine Benzodiazepines Screen NEGATIVE (NEGATIVE) Urine Cocaine Screen NEGATIVE (NEGATIVE) Urine Marijuana (THC) Screen POSITIVE (NEGATIVE) H Blood Gas Specimen Type Venous Arterial Blood Oxygen Saturation 38.7 % (94.0-98.0) L Venous Blood pH 7.366 (7.320-7.430) Venous Blood pCO2 at Patient Temp 50 (38-54) Venous Blood pO2 at Patient Temp 23.4 mmHg (23.0-48.0) Venous Blood HCO3 27.8 (22.0-29.0) Venous Blood Base Excess 1.6 (-2.0-3.0) Blood Gas Temperature 37.0 CELSIUS (35.5-37.0) Blood Gas Vent Mode RA (ROOM AIR) FiO2 21.0 % Blood Gas Specimen Comment ZACH INOCENCIA EKG/XRAY/US/CT/MRI EKG Comment PROCEDURE: EKG - 12 LEAD EKG TRACING- TECHNICAL [facility] Test Date: 2024-08-18 Test Time: 09:22:41 Pat Name: ISIS GRACIA Department: [facility] Room: 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 Lungs are clear. Heart size is normal. There is no pulmonary vascular congestion. Mediastinum and bony thorax appear unremarkable. IMPRESSION: 1. Normal single view chest x-ray. Ultrasound Comment PROCEDURE: CAROTID - US CAROTID DUPLEX US CAROTID DUPLEX HISTORY: Altered mental status COMPARISON: None TECHNIQUE: Duplex carotid arterial Doppler ultrasound study was performed. FINDINGS: The right common, internal and external carotid arteries are visualized. Left extracranial carotid artery system cannot be performed due to patient's underlying condition. Right vertebral artery is not evaluated. The peak systolic velocities of right common carotid artery is 111 centimeters per second, right internal carotid artery is 175 centimeters per second, right external carotid artery is 135 centimeters per second. Right internal carotid artery to right common carotid artery ratio is 1.6. IMPRESSION: 1. Limited study. There is 50-69% stenosis of the right internal carotid artery. CT Scan Comment PROCEDURE: HEAD WO - CT HEAD/BRAIN W/O CONTRAST Exam: NONCONTRAST CT BRAIN REASON: ALTERED MENTAL STATUS. COMPARISON: 12/06/2023 TECHNIQUE: Images are obtained from vertex to the skull base. The exam was performed without IV contrast. FINDINGS: There is normal appearing brain parenchyma. There are no focal mass lesions. There is is no evidence of intracranial hemorrhage or acute stroke. Ventricles and sulci appear normal. Posterior fossa and brainstem structures are unremarkable. Paranasal sinuses and remaining extracranial soft tissues appear normal as well. IMPRESSION: 1. Normal noncontrast CT brain. PROCEDURE: C SPIN WO - CT CERVICAL SPINE W/O CONTRAST CT CERVICAL SPINE W/O CONTRAST REASON: ALTERED MENTAL STATUS COMPARISON: 12/06/2023 TECHNIQUE: Images are obtained from skull base to the upper thoracic spine in the axial plane. Sagittal and coronal reconstruction images were then performed. FINDINGS: There is reversal of normal cervical curvature. There are marked degenerative changes in the C4, C5 and C6 disc interspaces with narrowing, there is some narrowing at C7 and T1 as well. There is mild motion artifact on the images. Axial images show moderate spinal stenosis at the C4-5 level. There is severe spinal stenosis at C5-6 and at C6-7. There are no fractures. Surrounding soft tissues appear unremarkable. IMPRESSION: 1. Degenerative changes with moderate stenosis at C4-5 and marked stenosis at C5-6 and C6-7. 2. No acute finding, no evidence of fracture. MRI Comment PROCEDURE: BRAIN WO - MR BRAIN WO CON MR BRAIN WO CON HISTORY: Altered mental status COMPARISON: None TECHNIQUE: MRI of the brain was performed utilizing multiple pulse sequences in axial, coronal and sagittal planes. Patient was not given contrast through intravenous route. FINDINGS: There are motion artifacts degrading the image quality. The ventricles and extraventricular CSF spaces are dilated consistent with cerebral atrophy. Nonspecific white matter changes are seen. There is no midline shift, mass effect or herniation. No subacute hemorrhage is seen. No MR evidence of acute infarct is seen in the diffusion weighted images. Cerebellar tonsils are in normal position. No evidence of mucoperiosteal thickening is seen of the visualized paranasal sinuses. No MR evidence of a mass lesion is seen in this noncontrast study. There is left mastoid effusion. IMPRESSION: 1. No MR evidence of acute infarct is seen in the diffusion weighted images. Left mastoid effusion. MDM MDM Potential differential diagnoses include: Electrolyte imbalance UTI Stroke Medication side effects Dehydration Assessment: We will order CBC to rule any anemia, infections and to evaluate the overall health of the patient. CMP was ordered in order to assess various electrolytes, kidney function, liver function ,protein levels and blood glucose levels, a CT of the head to rule out any bleed, CT of the neck, chest x-ray, BNP, troponin, UDS, urinalysis, ammonia levels. We will consult tele neuro normal review of suspected stroke. I will re-evaluate the patient after treatment and diagnostic exams have returned to determine whether they require further testing, can be safely discharged home, or need admission for further treatment and evaluation. Given the social determinants of health affecting care, including literacy, access to medical care, prescription drug management, and [id number] drugs, I will ensure that treatment plans are tailored accordingly. Revaluation : Patient is awake, alert, disoriented to place and time. Speech is fluent, clear and coherent, no dysarthria, aphasia. Cranial nerve examination is normal. Motor strength is 5 x 5 in all extremities. Vibration, light touch, pain sensations are intact. Gait normal. No neck stiffness. Labs WBC 11.6, magnesium 1.6, total bilirubin 1.3. Troponin, BNP, ammonia levels are normal. CT head resulted in no acute findings. CT spine showed Degenerative changes with moderate stenosis at C4-5 and marked stenosis at C5-6 and C6-7. Chest x-ray resulted in no acute findings. MRI brain was order as per the tele neurologist advise. Disposition: Patient is being transferred to other hospital for comprehensive neurological evaluation and workup there is no availability of neurologist at this facility. Patient will be transferred to [facility] in [place] report given to hospitalist. ED Course Orders Procedure Category Date Status Time Cbc With Differential LAB 08/18/24 Complete 08:54 12 Lead Ekg Tracing- EKG 08/18/24 Resulted Technical 08:54 Chest 1vw RAD 08/18/24 Resulted 08:54 Venous Blood Gas RT 08/18/24 Transmitted 08:54 Troponin I High LAB 08/18/24 Complete Sensitivity 08:54 Influenza Type A & B, LAB 08/18/24 Complete Rapid 08:54 Rapid (Group A Strep) LAB 08/18/24 Complete 08:54 Covid19 (Sars Antigen LAB 08/18/24 Complete Rapid) 08:54 Ct Head/Brain W/O CT 08/18/24 Resulted Contrast 08:54 Ct Cervical Spine W/O CT 08/18/24 Resulted Contrast 08:54 B-Type Natriuretic LAB 08/18/24 Complete Peptide 08:54 Urinalysis Profile LAB 08/18/24 Complete 08:54 Basic Metabolic Panel LAB 08/18/24 Complete 08:59 Hepatic Function Panel LAB 08/18/24 Complete 08:59 Ammonia LAB 08/18/24 Complete 08:59 Drug Screen Urine LAB 08/18/24 Complete 08:59 Magnesium LAB 08/18/24 Complete 09:38 Nurse Driven Lynn SIMON 08/18/24 In Process Removal Pro 09:53 Ketorolac 60mg/2ml PHA 08/18/24 Complete (Toradol 60mg/2ml) 12:00 Venous Blood Gas LAB 08/18/24 Complete 11:36 Magnesium 2gm Premix PHA 08/18/24 Complete 50ml (Magnesium 2gm 13:00 Mr Brain Wo Con MRI 08/18/24 Resulted 14:42 Ondansetron 4mg Inj PHA 08/18/24 Complete (Zofran 4mg Inj) 17:30 Us Carotid Duplex US 08/18/24 Resulted 18:27 Ketorolac PHA 08/18/24 Complete Tromethamine 30mg/Ml 21:30 Ondansetron 4mg Inj PHA 08/18/24 Complete (Zofran 4mg Inj) 21:30 Lorazepam 2 Mg PHA 08/18/24 Complete (Ativan) 21:30 Ondansetron 4mg Inj PHA 08/18/24 Complete (Zofran 4mg Inj) 21:30 Haloperidol Inj PHA 08/19/24 Complete (Haldol Inj) 00:30 Haloperidol Inj PHA 08/19/24 Complete (Haldol Inj) 00:16 Ceftriaxone 1g Vial PHA 08/19/24 Complete (Rocephine 1g Inj) 01:00 Current Medications Medications (Trade) Dose Ordered Sig/Zeke Route PRN Reason Start Time Stop Time Status Last Admin Dose Admin Ceftriaxone Sodium (ROCEphine 1G INJ) 1 gm ONCE ONCE IVPB 08/19/24 01:00 08/19/24 01:01 DC 08/19/24 03:01 Haloperidol Lactate (Haldol Inj) 2 mg ONCE ONCE IM 08/19/24 00:30 08/19/24 00:31 DC 08/19/24 00:22 Haloperidol Lactate (Haldol Inj) 5 mg STK-MED ONCE .ROUTE 08/19/24 00:16 08/19/24 00:16 DC Ketorolac Tromethamine (toRADol 60MG/ 2ML) 30 mg ONCE ONCE IM 08/18/24 12:00 08/18/24 12:01 DC 08/18/24 11:40 Ketorolac Tromethamine (toRADol) 30 mg ONCE ONCE IM 08/18/24 21:30 08/18/24 21:31 DC 08/18/24 21:16 Lorazepam (AtiVAN) 1 mg ONCE ONCE IVP 08/18/24 21:30 08/18/24 21:31 DC 08/18/24 21:42 Magnesium Sulfate 50 ml @ 0 mls/hr PROTOCOL ONCE IV 08/18/24 13:00 08/18/24 13:01 DC 08/18/24 13:00 Ondansetron HCl (zoFRAN 4MG INJ) 4 mg ONCE ONCE IVP 08/18/24 17:30 08/18/24 17:31 DC 08/18/24 17:18 Ondansetron HCl (zoFRAN 4MG INJ) 4 mg ONCE ONCE IVP 08/18/24 21:30 08/18/24 21:31 DC 08/18/24 21:42 Ondansetron HCl (zoFRAN 4MG INJ) 4 mg ONCE ONCE IVP 08/18/24 21:30 08/18/24 21:31 DC Vital Signs Date Time Temp Pulse Resp B/P (MAP) Pulse Ox O2 Delivery O2 Flow Rate FiO2 08/19/24 13:45 98.2 69 20 160/58 99 Room Air* 0 08/19/24 07:27 98.4 73 20 107/66 99 Room Air* 0 08/19/24 06:05 98.2 88 18 145/45 Room Air* 0 08/18/24 23:50 98.1 81 18 156/74 99 Room Air* 0 08/18/24 20:28 98.1 81 18 188/74 100 Room Air* 0 08/18/24 18:19 97.5 76 16 171/94 Room Air* 0 08/18/24 14:57 66 16 153/59 97 Room Air* 0 08/18/24 13:40 69 16 160/65 97 Room Air* 0 08/18/24 12:40 66 16 177/83 Room Air* 0 08/18/24 11:01 63 16 135/104 98 Room Air* 0 08/18/24 09:44 64 18 171/108 99 Room Air* 0 08/18/24 08:36 97.5 70 20 166/92 Room Air 7:00 p.m. patient was signed out to me by [email or web address] shift resident and attending physician. This is a 78-year-old morbidly obese female with a known history of ADHD on stimulants previously amphetamines which was changed to Strattera. Patient has also been taking synthetic cannabinoids-delta 8 for chronic pain for more than 30 years. She became more confused last night and difficulty with speech. Apparently she got 2 of the delta 8 last night and slept and when she woke up she was more confused and had difficulty understanding and talking and hence the and daughter brought her to the emergency room for further darek luation Initial blood pressure 166/92. 10:00 p.m. clerical warehouseman notified me that [facility] in [place] we will have a bed availability tomorrow morning. Efforts to transfer the patient to facility with neurology services in progress 12:20 a.m. patient became extremely agitated screaming combative kicking the staff. Protective mittens placed and a sitter arranged for constant observation for the safety of patient. We will give a trial of Haldol. 1:15 a.m. patient has been resting comfortable and cooperative DX & DISP Disposition: Transfer Departure Impression: Primary Impression: Expressive aphasia Additional Impressions: Acute metabolic encephalopathy, Uncontrolled hypertension, Morbid obesity, Coronary artery disease, Hypercholesterolemia, History of TIA (transient ischemic attack), Synthetic cannabinoid-induced delirium Condition: Stable Additional Instructions: The patient has been informed about all the diagnostic tests and procedures carried out in the emergency room today and has confirmed understanding of the results. Patient will be transferred to a facility that provides a higher level of care since such services are not accessible locally or within our immediate community. The patient is alert oriented and not experiencing any acute distress. There are no signs of sepsis and patient's hemodynamic status is stable at the moment. Medically, the patient is considered stable for transfer Patient will be transferred to another facility for neurological services as there is no availability of neurologist at this facility Referrals: RUT PERES MD (PCP) I have examined patient, & reviewed all documents This is a 78-year-old morbidly obese female who was brought into the emergency room today by for confusion and altered mental status. She was in her usual state of health until yesterday evening when she appeared confused disoriented to the family members. Patient is 89-year-old mother was concerned that patient was walking naked in the house appeared not to know what was happening. She eventually slept and when this morning she continued to be very confused and not talking or did not understand, they brought her in for evaluation. I assumed care at 7:00 p.m. and I re-evaluated her independently. She was sitting in the chair during my evaluation and answered a few questions. She was quite confused and halted and was very slow to answer some questions and was lost in answering some questions. Patient has taken synthetic cannabinoids for over 30 years and apparently her gave delta 8 pills 2 of them last night as she was complaining of right shoulder pain Patient had a fall a week ago on the right side when she hit her head and she also has bruises on the right side. No loss of consciousness or seizure activity. The daughter indicated that for the past few weeks patient also reported that she had diplopia and was not feeling well. She used to be a heavy smoker and also has a history of alcohol in the past. Patient has ADHD diagnosis and she takes Strattera. No headache, facial droop, weakness. Glucose was 113 NIH was 2 Her temperature was 97.5 pulse 70 respirations 20 blood pressure 166/92 with a pulse oximetry of 98% on room air General: awake, alert, NAD speech is fluent but very slow to understand and articulate Head/Face: Normocephalic, atraumatic Eyes: PERRL, EOMI, vision at baseline ENT: oral cavity clear, TMs clear, no signs of infection Neck: Trachea midline, supple, no nuchal rigidity Cardiovascular: RRR, normal S1/S2, No MRGs, no JVD Respiratory: CTAB, no respiratory distress, No rales or wheezes Abdomen: Soft, non-tender, non-distended, normal bowel sounds, no guarding or rebound. Skin: Warm, dry, normal turgor, no rash MS/Extremity: Pulses equal, no cyanosis, neurovascular intact, FROM no bony deformities Neuro: COAx1, GCS 15, strength 5/5, CN 2-12 intact, normal cerebellar exam, n ormal gait, no hematoma or depressed skull fractures Psych: Very fidgety and restless pacing in the mathur and in her room. Giggling and laughing at times inappropriately Extremities-trace edema without any palpable cords, Homans sign is negative Labs reviewed ABG showed a pH of 7.36 pCO2 of 50 CBC showed a white count of 11.6 hemoglobin 15.8 platelets 265 BNP 7 is within normal limits magnesium 1.6 LFTs showed an SGOT of 48 bilirubin 1.3 ammonia 14 urinalysis showed some proteinuria and moderate amount of occult blood but no evidence of any UTI. CT scan of the head no intracranial abnormalities Patient was evaluated by tele neurologist Dr. Michi Dixon and recommended MRI of the brain. Impression-expressive aphasia, acute toxic metabolic encephalopathy, ADHD, coronary artery disease, uncontrolled hypertension Due to lack of availability of a neurologist in house, patient is being transferred to other facility so she can be evaluated by a neurologist. I updated the patient and daughter and the daughter was agreeable. MAGEN CONTI MD Aug 18, 2024 09:11 JOSHUA ALEXIS MD Aug 18, 2024 20:55 QUINN MENDEZ MD Aug 19, 2024 14:41
--- NOTE | 2024-08-18 09:25 | HMCIMG ---
CT CERVICAL SPINE W/O CONTRAST REASON: ALTERED MENTAL STATUS COMPARISON: 12/06/2023 TECHNIQUE: Images are obtained from skull base to the upper thoracic spine in the axial plane. Sagittal and coronal reconstruction images were then performed. FINDINGS: There is reversal of normal cervical curvature. There are marked degenerative changes in the C4, C5 and C6 disc interspaces with narrowing, there is some narrowing at C7 and T1 as well. There is mild motion artifact on the images. Axial images show moderate spinal stenosis at the C4-5 level. There is severe spinal stenosis at C5-6 and at C6-7. There are no fractures. Surrounding soft tissues appear unremarkable. IMPRESSION: 1. Degenerative changes with moderate stenosis at C4-5 and marked stenosis at C5-6 and C6-7. 2. No acute finding, no evidence of fracture. CT was performed with one or more following dose reduction techniques: automated exposure control, adjustment of the mA and kv according to patient's size, or use of a iterative reconstruction technique.
--- NOTE | 2024-08-18 09:26 | HMCIMG ---
Exam: NONCONTRAST CT BRAIN REASON: ALTERED MENTAL STATUS. COMPARISON: 12/06/2023 TECHNIQUE: Images are obtained from vertex to the skull base. The exam was performed without IV contrast. FINDINGS: There is normal appearing brain parenchyma. There are no focal mass lesions. There is is no evidence of intracranial hemorrhage or acute stroke. Ventricles and sulci appear normal. Posterior fossa and brainstem structures are unremarkable. Paranasal sinuses and remaining extracranial soft tissues appear normal as well. IMPRESSION: 1. Normal noncontrast CT brain. CT was performed with one or more following dose reduction techniques: automated exposure control, adjustment of the mA and kv according to patient's size, or use of a iterative reconstruction technique.
--- NOTE | 2024-08-18 09:30 | EKG ---
[facility] Test Date: 2024-08-18 Test Time: 09:22:41 Pat Name: ISIS GRACIA Department: ED Room: Gender: F Turf Farmer: [id number] : 1945 Requested By: MAGEN CONTI Order Number: [id number] Reading MD: Alma Sandra Measurements Intervals [place] Rate: 67 P: 49 PA: 160 QRS: 22 QRSD: 93 T: 50 QT: 411 QTc: 434 Interpretive Statements Sinus rhythm Low voltage, precordial leads Compared to ECG 12/06/2023 15:12:46 No significant changes Electronically Signed On 08-18-2024 17:10:11 RETAIL CLIENT MANAGER by Alma Sandra Please click the below link to view image of tracing.
[2024-08-18 09:46] LABS: BASOPHILS # (AUTO) 0.05 K/uL (0.00-0.20); BASOPHILS % (AUTO) 0.4 % (0.0-5.0); EOSINOPHILS # (AUTO) 0.14 K/uL (0.00-0.70); EOSINOPHILS % (AUTO) 1.2 % (0.0-8.0); HEMATOCRIT 46.7 % (36-48); IMMATURE GRANULOCYTE ABSOLUTE 0.04 K/uL (0-1); LYMPHOCYTES # (AUTO) 1.1 K/uL (1.0-4.8); LYMPHOCYTES % (AUTO) 9.5 % (21.0-51.0); MEAN CORPUSCULAR HEMOGLOBIN 31.1 pg (27.0-33.0); MEAN CORPUSCULAR HGB CONC 33.8 g/dL (32.0-36.0); MEAN CORPUSCULAR VOLUME 91.9 fL (79-99); MONOCYTES # (AUTO) 0.6 K/uL (0.1-1.0); MONOCYTES % (AUTO) 5.2 % (3.0-13.0); NEUTROPHILS # (AUTO) 9.6 K/uL (1.8-7.7); NEUTROPHILS % (AUTO) 83.4 % (40.0-77.0); PLATELET COUNT (AUTO) 265 K/uL (130-400); RED BLOOD CELL COUNT(AUTO) 5.08 MIL/uL (4.00-5.50); RED CELL DISTRIBUTION WIDTH 13.1 % (11.0-15.5); WHITE BLOOD COUNT (AUTO) 11.6 K/uL (4.8-10.8)
[2024-08-18 09:55] LABS: CREATININE 0.9 mg/dL (0.5-1.0); POTASSIUM 4.4 mmol/L (3.5-5.1)
[2024-08-18 09:55] LABS: RAPID GROUP A STREP negative (NEGATIVE)
[2024-08-18 09:59] LABS: ALBUMIN 3.9 g/dL (3.5-5.0); BILIRUBIN,DIRECT 0.1 mg/dL (0.0-0.3); BILIRUBIN,TOTAL 1.3 mg/dL (0.2-1.0); MAGNESIUM 1.6 mg/dL (1.80-2.40); TOTAL PROTEIN, SERUM 7.9 g/dL (6.0-8.3)
[2024-08-18 10:05] LABS: COVID19 (SARS ANTIGEN RAPID) PRESUMPTIVE NEGATIVE (NEGATIVE); INFLUENZA TYPE A Negative For Type A (NEGATIVE); INFLUENZA TYPE B Negative For Type B (NEGATIVE)
[2024-08-18 10:27] LABS: APPEARANCE,URINE CLEAR (CLEAR); BILIRUBIN,URINE NEGATIVE (NEGATIVE); COLOR,URINE YELLOW (YELLOW); GLUCOSE, URINE (UA) NEGATIVE (NEGATIVE); KETONES,URINE 20 mg/dL (NEGATIVE); LEUKOCYTE ESTERASE ,URINE NEGATIVE Leu/uL (NEGATIVE); NITRATE,URINE NEGATIVE (NEGATIVE); OCCULT BLOOD,URINE MODERATE (NEGATIVE); PH,URINE 5.5 (5.0-8.0); PROTEIN,URINE 50 mg/dL (NEGATIVE); UROBILINOGEN,URINE 0.2 mg/dL (0.2-1.0)
--- NOTE | 2024-08-18 10:28 | NUR ---
Harshad campos in ED - 08/18/24 at [address] HANSEN SPOKE TO DR. BRANDON CONE TENDER FOR CONSULT
[2024-08-18 10:30] LABS: B-TYPE NATRIURETIC PEPTIDE 47 pg/mL (0-100)
--- NOTE | 2024-08-18 10:35 | HMCIMG ---
CHEST 1VW REASON: CONGESTION COMPARISON: 12/06/2023 FINDINGS: Single view of the chest was obtained. Lungs are clear. Heart size is normal. There is no pulmonary vascular congestion. Mediastinum and bony thorax appear unremarkable. IMPRESSION: 1. Normal single view chest x-ray.
[2024-08-18 10:37] LABS: ADD UA MICROSCOPIC YES
[2024-08-18 10:44] LABS: BACTERIA,URINE RARE /HPF (None Seen); MUCUS,URINE RARE LPF (None Seen); SQUAMOUS EPITHELIAL CELL,UR FEW /HPF (0-2)
[2024-08-18 10:45] LABS: AMPHET/METH SCREEN,URINE NEGATIVE (NEGATIVE); BARBITURATE SCREEN, URINE NEGATIVE (NEGATIVE); BENZODIAZEPINES SCREEN,URINE NEGATIVE (NEGATIVE); CANNABINOID SCREEN,URINE POSITIVE (NEGATIVE); COCAINE SCREEN,URINE NEGATIVE (NEGATIVE); OPIATE SCREEN,URINE NEGATIVE (NEGATIVE); PHENCYCLIDINE SCREEN,URINE NEGATIVE (NEGATIVE)
[2024-08-18 11:37] LABS: ABG OXYGEN SATURATION 38.7 % (94.0-98.0); BASE EXCESS,VENOUS BLOOD GAS 1.6 (-2.0-3.0); DEVICE COMMENT VEN SAUL; HCO3,VENOUS BLOOD GAS 27.8 (22.0-29.0); PCO2,VENOUS BLOOD GAS 50 (38-54); PH,VENOUS BLOOD GAS 7.366 (7.320-7.430); PO2,VENOUS BLOOD GAS 23.4 mmHg (23.0-48.0); VENT MODE, BG RA (ROOM AIR)
[2024-08-18] MEDS: ketOROlac 60 MG VIAL (30MG/ML) IM ONE (11:40)
--- NOTE | 2024-08-18 11:45 | NUR ---
TRANSFER REQUEST FOR NEUROLOGY SERVICE . YURI BEAN
--- NOTE | 2024-08-18 12:20 | NUR ---
TRANSFER CALL PLACE TO [facility] [phone] SPOKE WITH CHASITY INFORMATION PROVIDED. YURI BEAN
--- NOTE | 2024-08-18 12:28 | CONS ---
CONSULT NOTE: [place] [facility] Note # Demographics Consult Type: General Neurology Patient Location: Emergency Room First Name: ISIS Swift Last Name: SAMIA Date of : 1945 Age: 78 Gender: Female Facility: [facility] Time of Initial Page (Central Time): 08/18/2024, 10:59 Time of Return Call (Central Time): 08/18/2024, 10:59 # HPI History: 78yo presented with altered mental status # Scores Time of exam and NIHSS (Central Time): 08/18/2024, 11:23 Level of Consciousness 1a: [0] = Alert; keenly responsive LOC Questions 1b: [2] = Answers neither correctly LOC Commands 1c: [0] = Performs both tasks correctly Best Gaze 2: [0] = Normal Visual 3: [0] = No visual loss Facial Palsy 4: [0] = Normal symmetrical movements Motor Arm Left 5a: [0] = No drift Motor Arm Right 5b: [0] = No drift Motor Leg Left 6a: [0] = No drift Motor Leg Right 6b: [0] = No drift Limb Ataxia 7: [0] = Absent Sensory 8: [0] = Normal Best Language 9: [0] = No aphasia Dysarthria 10: [0] = Normal Extinction and Inattention 11: [0] = No abnormality NIHSS Total: 2 # Exam Time of Exam (Central Time): 08/18/2024, 11:24 # PMH-FH-SH Past Medical History: - TIA - hypertension - hyperlipidemia - hypothyroid Social History: - non-smoker - non-drinker Medications: - antihypertensive - diabetic medication - lipid lowering agent # Data Time Head CT personally read by me (Central Time): 08/18/2024, 12:[address]: - no bleed - per radiologist read # Assessment Impression: - Altered Mental Status Diff dx includes stroke, seizure, metabolic, infection # Plan Labs: - TSH - B12 - thiamine Imaging: (urgency: routine): - MRI Brain without contrast Imaging / diagnostics: (urgency: outpatient): - EEG Other: - If patient has any neurological deterioration please call back immediately Additional Recommendations: If initial w/u neg and AMS persist do LP to r/o polymer materials consultant infectious process # Logistics Attestation of consult completion: The patient is located at: [facility]. Facility staff participated in the visit. I performed this telemedicine visit from my offsite office utilizing interactive 2 way audio and visual telecommunication technology. # Demographics First Name: ISIS Swift Last Name: SAMIA Facility: [facility] ARIE GAGNON Jr., MD Aug 18, 2024 12:28
--- NOTE | 2024-08-18 12:40 | NUR ---
CALL BACK WITH FROM [facility]ASITY WITH A DENIAL DO TO [facility]. YURI BEAN
--- NOTE | 2024-08-18 12:45 | NUR ---
TRANSFER REQUEST TO [facility] SPOKE WITH CHASITY INFORMATION PROVIDED AGAIN WILL CALL BACK. YURI BEAN
[2024-08-18] MEDS: MAGNESIUM 2GM PREMIX 50ML 50 ML IV ONE (13:00)
--- NOTE | 2024-08-18 13:00 | NUR ---
TRANSFER CHASITY CALL BACK WITH ACCEPTANCE TO [facility] PENDING A BED . YURI BEAN
[2024-08-18] MEDS: ondanSETRON 4MG INJ IVP ONE ×3 (17:18→21:42)
--- NOTE | 2024-08-18 17:23 | NUR ---
Harshad campos in [facility] - 08/18/24 at 1816 by TINA STREP + GAIL GONZALEZ AWARE
--- NOTE | 2024-08-18 18:00 | NUR ---
TRANSFER FOLLOW UP WITH TRANSFER CENTER PER INTAKE NURSE CARIE STILL PENDING A BED. ER DOCTOR AND PT AND DAUGHTER MADE AWARE ALL VERBALIZED UNDERSTANDING. REPORT WILL BE GIVEN TO INCOMING HOUSESUPERVISOR. YURI BEAN
[2024-08-18] MEDS: ketOROlac 30MG VIAL (30MG/ML) IM ONE (21:16)
[2024-08-18] MEDS: LORazepam 2 MG/ML 1 ML VIAL IVP ONE (21:42)
--- NOTE | 2024-08-18 23:31 | HMCIMG ---
US CAROTID DUPLEX HISTORY: Altered mental status COMPARISON: None TECHNIQUE: Duplex carotid arterial Doppler ultrasound study was performed. FINDINGS: The right common, internal and external carotid arteries are visualized. Left extracranial carotid artery system cannot be performed due to patient's underlying condition. Right vertebral artery is not evaluated. The peak systolic velocities of right common carotid artery is 111 centimeters per second, right internal carotid artery is 175 centimeters per second, right external carotid artery is 135 centimeters per second. Right internal carotid artery to right common carotid artery ratio is 1.6. IMPRESSION: 1. Limited study. There is 50-69% stenosis of the right internal carotid artery.
--- NOTE | 2024-08-18 23:40 | NUR ---
SPOKE WITH RNIA AT [facility] WHO STATED PT IS ACCEPTED AT [facility] AND IS WAITING FOR A BED.
--- NOTE | 2024-08-18 23:51 | NUR ---
PTS DAUGHTER LEFT, PATIENT STARTED TO WANDER, VERY AGITATED AND CONFUSED. 1:1 WITH AUTO DAMAGE ESTIMATOR WILL BE TRANFERRED PATRICK MORNING AT [facility] PER HOUSE SUP OLIEVRIO
[2024-08-19] MEDS: HALOPERIDOL INJ 5 MG/ML VIAL IM ONE (00:22)
--- NOTE | 2024-08-19 00:23 | HMCIMG ---
MR BRAIN WO CON HISTORY: Altered mental status COMPARISON: None TECHNIQUE: MRI of the brain was performed utilizing multiple pulse sequences in axial, coronal and sagittal planes. Patient was not given contrast through intravenous route. FINDINGS: There are motion artifacts degrading the image quality. The ventricles and extraventricular CSF spaces are dilated consistent with cerebral atrophy. Nonspecific white matter changes are seen. There is no midline shift, mass effect or herniation. No subacute hemorrhage is seen. No MR evidence of acute infarct is seen in the diffusion weighted images. Cerebellar tonsils are in normal position. No evidence of mucoperiosteal thickening is seen of the visualized paranasal sinuses. No MR evidence of a mass lesion is seen in this noncontrast study. There is left mastoid effusion. IMPRESSION: 1. No MR evidence of acute infarct is seen in the diffusion weighted images. Left mastoid effusion.
[2024-08-19] MEDS: HALOPERIDOL INJ 5 MG/ML VIAL ONE (00:24)
[2024-08-19] MEDS: cefTRIAXone 1G VIAL IVPB ONE (03:01)
--- NOTE | 2024-08-19 05:00 | NUR ---
IV CANNULA OUT
--- NOTE | 2024-08-19 08:58 | NUR ---
DAUGHTER MILEY (POA) CALLED TO INFORM THAT PT HAS HAD DX OF MASTADITIS FOR MANY YEARS BUT THAT DOCTORS HAVE NOT DONE ANYTHING ABOUT IT, IS CONCERNED FOR BACTERIAL MENINGITIS, NOTIFIED ER DR. MENDEZ AND WILL COMMUNICATE INFO ALSO WHEN TRANSFERRING OVER.
--- NOTE | 2024-08-19 09:05 | NUR ---
TRANSFER FOLLOW UP CALL PLACE TO TRANSFER CENTER [phone] SPOKE WITH EUFEMIA STATES WILL PASS IT ON TO [facility] INTAKE NURSE TO REINITIATE. YURI BEAN
[2024-08-19 13:45] VITALS: O2SAT 99
--- NOTE | 2024-08-19 14:15 | NUR ---
TRANSFER FOLLOW [place] PLACE [place] [facility]POKE WITH CHASITY INTAKE NURSE, STATES WILL CALL HOUSESUPERVISOR AND WILL CALL BACK. YURI BEAN
--- NOTE | 2024-08-19 14:16 | NUR ---
DR MENDEZ MADE AWARE TO EXPECT A CALL FROM TRANSFER CENTER FOR DOCTOR TO DOCTOR REPORT VERBLIZED UNDERSTANDING. YURI BEAN
--- NOTE | 2024-08-19 15:20 | NUR ---
TRANSFER ,CALL BACK WITH RECEIVED WITH ACCEPTANCE TO [facility] TO UNDER DR ELVA CRAWLEY TO ROOM 1261 PRIMARY NURSE TO CALL REPORT TO [phone] EMS WHEN READY. YURI BEAN
--- NOTE | 2024-08-19 15:22 | NUR ---
DAUGHTER MILEY CALLED X 3 TODAY, JUST CALLED NOW AND ASKED FOR RECIEVING HOSPOITAL STATUS AND INFORMED THAT WE ARE STILL WAITING FOR A CALL BACK FOR ROOM AVAILABILITY. ALSO STATES SHE IS CONCERNED IF THE PT HAS BEEN EATING, INFORMED THAT PT HAS BEEN GETTING A TARY MEAL FOR BREAKFAST AND LUNCH TODAY BUT DOES NOYT EAT MUCH BECAUSE SHE STATES SHE DOES NOT LIKE HOSPITAL FOOD, OFFERED DAUGHTER TO BRING OUTSIDE FOOD IF SHE WOULD LIKE SO THAT SHE MAY BE ABLE TO EAT MORE, DAUGHTER STATES SHE IS NOT TOO CONECRNED FOR HER EATING BUT MORE CONCERNED FOR HER HYDRATION AND WORRIED IF SHE HAS ANYTHING TO DRINK. INFORMED THAT SHE HAS BEEN OFFERED WATER AND VISIBLY SEE A LARGE CUP WITH WATER HALF WAY FULL AND A STRAW IN IT AND THAT SHE HAS BEEN DRINKING FROM IT. REMINDED HER THAT SHE IS WELCOMED TO BRING OUTSIDE FOOD IF SHE WISHES BUT STATES THAT SHE IS CONCERNED THAT IF SHE COMES, HER MOTHER MAY GET ANXIOUS IF SHE SEES HER. PT HAS BEEN HAVING A 1:1 OBSERVATION WITH JARAD NICHOLS DURING THE ENTIRE SHIFT.
--- NOTE | 2024-08-19 15:55 | NUR ---
PT AKED TO CALL DAUGHTER TO SEE IF SHE COULD BRING HER CPAP MACHINE. CALLED DAUGHTER MILEY AND INFORMED THAT PT IS ASKING FOR HER CPAP MACHINE. STATES WILL BRING IT LATER AND APPEARED HAPPY, STATES "THAT IS AN IMPROVEMENT!". STATES SHE IS GETTING OTHER THINGS TO BRING FOR HER TOO.
[2024-08-19 16:54] VITALS: BP 157/62; PULSE 71; RESP 20; TEMP 98.4
--- NOTE | 2024-08-19 16:55 | NUR ---
CALLED REPORT TO ASIA ARVIZU AT [facility], ALSO INCLUDED IN REPORT THAT PT'S DAUGHTER IS CONCERNED ABOUT PAST HX OF MASTOIDITIS AND CONCERNED SHE MAY HAVE BACTERIAL MENINGITIS. ALSO INFORMED THAT PT REMOVED HER IV LAST NIGHT AND HAS BEEN REFUSING TO HAVE AN IV DURING THE SHIFT.
--- NOTE | 2024-08-19 16:59 | NUR ---
[facility] STATES THEY WILL ALSO ASK PERMISSION FROM PT AND ATTEMPT AN IV
== END 2024-08-19 16:59 | disposition short-term general hospital (02) ==
LOC: EDH 08:35
DX: G93.41 Metabolic encephalopathy (principal); R47.01 Aphasia; I11.9 Hypertensive heart disease without heart failure; I25.10 Atherosclerotic heart disease of native coronary artery without angina pectoris; I65.21 Occlusion and stenosis of right carotid artery; E66.01 Morbid (severe) obesity due to excess calories; E03.9 Hypothyroidism, unspecified; E78.00 Pure hypercholesterolemia, unspecified; Z79.02 Long term (current) use of antithrombotics/antiplatelets; Z20.822 Contact with and (suspected) exposure to COVID-19; Z79.82 Long term (current) use of aspirin; Z86.73 Personal history of transient ischemic attack (TIA), and cerebral infarction without residual deficits; Z88.7 Allergy status to serum and vaccine; Z90.49 Acquired absence of other specified parts of digestive tract
CPT/HCPCS: 99285; 93880; 70551; 70450; 96365; 96375 ×2; 71045; 96366; 87426; 80076; 83735; 84484; 80048; 82803; 83880; 80305; 82140; 85025; 87880; 87804 ×2; 36415; 72125; 96376; 93005; 36600; 81001; 96372 ×3; J1885 ×2; J3475; J2405 ×2; J2060; J1630; J0696

== ENCOUNTER → 2024-11-15 | Outpatient (CLI) | payer OTHER ==
[2024-11-15 10:04] LABS: BASOPHILS # (AUTO) 0.06 K/uL (0.00-0.20); BASOPHILS % (AUTO) 0.5 % (0.0-5.0); EOSINOPHILS # (AUTO) 0.46 K/uL (0.00-0.70); EOSINOPHILS % (AUTO) 4.1 % (0.0-8.0); IMMATURE GRANULOCYTE ABSOLUTE 0.05 K/uL (0-1); LYMPHOCYTES # (AUTO) 1.1 K/uL (1.0-4.8); LYMPHOCYTES % (AUTO) 9.7 % (21.0-51.0); MEAN CORPUSCULAR HGB CONC 32.7 g/dL (32.0-36.0); MEAN CORPUSCULAR VOLUME 94.6 fL (79-99); MONOCYTES # (AUTO) 0.7 K/uL (0.1-1.0); MONOCYTES % (AUTO) 6.2 % (3.0-13.0); NEUTROPHILS # (AUTO) 8.8 K/uL (1.8-7.7); NEUTROPHILS % (AUTO) 79.1 % (40.0-77.0); PLATELET COUNT (AUTO) 339 K/uL (130-400); RED BLOOD CELL COUNT(AUTO) 4.65 MIL/uL (4.00-5.50); RED CELL DISTRIBUTION WIDTH 13.2 % (11.0-15.5); WHITE BLOOD COUNT (AUTO) 11.1 K/uL (4.8-10.8)
[2024-11-15 10:22] LABS: HEMOGLOBIN A1C 5.6 % (4.0-6.0)
[2024-11-15 10:44] LABS: ALANINE AMINOTRANSFERASE 32 U/L (12-78); ALBUMIN 3.7 g/dL (3.5-5.0); ASPARTATE AMINOTRANSFERASE 23 U/L (10-37); BILIRUBIN,TOTAL 0.7 mg/dL (0.2-1.0); CARBON DIOXIDE 30 mmol/L (21-32); CHLORIDE 108 mmol/L (101-111); CHOLESTEROL 152 mg/dL (<200); CREATININE 1.2 mg/dL (0.5-1.0); GLOMERULAR FILTR. RATE CALC 47 mL/min (>90); GLUCOSE,RANDOM 101 mg/dL (70-105); HDL CHOLESTEROL 73 mg/dL (35-85); LDL DIRECT 64 mg/dL (0-99); POTASSIUM 4.4 mmol/L (3.5-5.1); SODIUM SERUM 145 mmol/L (136-145); THYROID STIMULATING HORMONE 1.93 uIU/mL (0.36-3.74); TOTAL PROTEIN, SERUM 7.2 g/dL (6.0-8.3); TRIGLYCERIDES 89 mg/dL (30-200); UREA NITROGEN, BLOOD 17 mg/dL (7-18)
[2024-11-15 11:02] LABS: APPEARANCE,URINE CLOUDY (CLEAR); BILIRUBIN,URINE NEGATIVE (NEGATIVE); COLOR,URINE YELLOW (YELLOW); GLUCOSE, URINE (UA) NEGATIVE (NEGATIVE); KETONES,URINE NEGATIVE (NEGATIVE); LEUKOCYTE ESTERASE ,URINE 500 Leu/uL (NEGATIVE); NITRATE,URINE NEGATIVE (NEGATIVE); OCCULT BLOOD,URINE NEGATIVE (NEGATIVE); PROTEIN,URINE 20 mg/dL (NEGATIVE); UROBILINOGEN,URINE 0.2 mg/dL (0.2-1.0)
[2024-11-15 11:12] LABS: AMPHET/METH SCREEN,URINE NEGATIVE (NEGATIVE); BARBITURATE SCREEN, URINE NEGATIVE (NEGATIVE); BENZODIAZEPINES SCREEN,URINE NEGATIVE (NEGATIVE); CANNABINOID SCREEN,URINE POSITIVE (NEGATIVE); COCAINE SCREEN,URINE NEGATIVE (NEGATIVE); OPIATE SCREEN,URINE NEGATIVE (NEGATIVE); PHENCYCLIDINE SCREEN,URINE NEGATIVE (NEGATIVE)
[2024-11-15 11:18] LABS: ADD UA MICROSCOPIC YES
[2024-11-15 11:34] LABS: BACTERIA,URINE RARE /HPF (None Seen); MUCUS,URINE RARE LPF (None Seen); NON-SQUAMOUS EPITHELIAL CELL 1 /HPF (0-2); SQUAMOUS EPITHELIAL CELL,UR MANY /HPF (0-2); WBC,URINE 26-50 /HPF (0-1)
--- NOTE | 2024-11-15 13:17 | EKG ---
[facility] Test Date: 2024-11-15 Test Time: 09:37:08 Pat Name: ISIS GRACIA Department: LAB Room: Gender: F Rehab Department Manager: [id number] : 1945 Requested By: BELL WELCH Order Number: [id number] Reading MD: Geraldo Sandra Measurements Intervals [place] Rate: 78 P: 50 TX: 144 QRS: 14 QRSD: 82 T: 64 QT: 390 QTc: 444 Interpretive Statements Normal sinus rhythm Low voltage QRS Compared to ECG 08/18/2024 09:22:41 No significant changes Electronically Signed On 11-15-2024 13:37:08 CDT by Geraldo Sandra Please click the below link to view image of tracing.
== END | disposition home or self-care (01) ==
LOC: LAB 09:08
PROVIDERS: ATTEND Psychiatry & Neurology Psychiatry
DX: Z79.899 Other long term (current) drug therapy (principal)
CPT/HCPCS: 36415; 80053; 80061; 80305; 81001; 82306; 82607; 82746; 83036; 84443; 85025; 87086; 93005